=== PATIENT | female | born 1970 | race Caucasian/White ===

== ENCOUNTER 2019-05-01 14:48 | Emergency (ER) | payer SELFPAY ==
[2019-05-01 15:12] VITALS: BP 134/89; PULSE 90; RESP 16; TEMP 36.5; O2SAT 98
--- NOTE | 2019-05-01 15:19 | DI.RAD.S_ITS ---
PROCEDURE: XR CHEST 1V INDICATIONS: chest pain TECHNIQUE: One view of the chest was acquired. COMPARISON: None. FINDINGS: Surgical changes and devices: None. Lungs and pleura: Lungs are clear. No pleural effusions or pneumothorax. Mediastinum: Mediastinal contours appear normal. Heart size is normal. Bones and chest wall: No suspicious bony lesions. Overlying soft tissues appear unremarkable. IMPRESSION: No evidence acute pulmonary process. Dictated by: Franko Smith M.D. on 05/01/2019 at 16:25 Approved by: Franko Smith M.D. on 05/01/2019 at 16:25
[2019-05-01 15:58] LABS: Add Manual Diff / Slide Review NO; Basophils Absolute Auto 0 /uL (0-100); Basophils Percent Auto 0.6 % (0-2); Eosinophils Absolute Auto 200 /uL (0-450); Eosinophils Percent Auto 3.2 % (2-4); Hematocrit 39.7 % (36-46); Hemoglobin 13.2 g/dL (12.0-16.0); Lymphocytes Absolute Auto 2000 /uL (1100-4500); Lymphocytes Percent Auto 35.5 % (25-40); Mean Corpuscular HGB Conc 33.4 % (30-36); Mean Corpuscular Hemoglobin 27.7 PG (26-34); Mean Corpuscular Volume 82.9 fL (80-100); Monocytes Absolute Auto 500 /uL (0-900); Monocytes Percent Auto 8.5 % (3-14); Neutrophils Absolute Auto 3000 /uL (1500-7000); Neutrophils Percent Auto 52.2 % (50-75); Platelet Count 260 X10^3/uL (150-400); Red Blood Cell Count 4.79 X10^6/uL (4.0-5.2); Red Cell Distribution Width 14.4 % (11.6-14.8); White Blood Cell Count 5.8 X10^3/uL (4.5-11.0)
[2019-05-01 16:07] LABS: Prothrombin Time 10.9 SECONDS (10.1-12.7)
--- NOTE | 2019-05-01 16:09 | ED_ITS ---
HPI - Chest Pain General Chief Complaint: Chest Pain Stated Complaint: HEART FLUTTERS CRAMPS IN LEGS Time Seen by Provider: 05/01/19 15:55 Source: patient Mode of arrival: Ambulatory History of Present Illness HPI narrative: Patient is a 48-year-old female who presents with left-sided chest pain. She says it started for abruptly around 11:00 p.m. last evening. The initial onset was the worst and most intense however it has been constant in 1 particular area. it does not get better or worse with exertion. She is unable to lie flat last night she does sleep with multiple pillows behind her. She noticed going up stairs she gets extremely short of breath. She denies any swelling no recent travel. She denies any dizziness or lightheadedness. She says she was moving some things but was not very heavy she does not think that she pulled her injured anything. MD complaint: chest pain Onset (ago): hour(s) Duration: constant Onset: during rest Pain location: left chest Related Data Home Medications Medication Instructions Recorded Confirmed albuterol sulfate [Ventolin HFA] 2 puff INH PRN PRN #0 07/30/17 05/01/19 Probiotic 1 cap PO DAILY 05/01/19 05/01/19 acyclovir 1 dose PO PRN PRN 05/01/19 05/01/19 aspirin 81 mg PO DAILY 05/01/19 05/01/19 beclomethasone dipropionate [Qvar 1 inh INHALATION BID 05/01/19 05/01/19 RediHaler] cetirizine 10 mg PO DAILY 05/01/19 05/01/19 cholecalciferol (vitamin D3) 5,000 unit PO DAILY 05/01/19 05/01/19 [Vitamin D3] gabapentin 300 mg PO Q6H PRN 05/01/19 05/01/19 montelukast 10 mg PO DAILY 05/01/19 05/01/19 omeprazole magnesium [Prilosec OTC] 20 mg PO DAILY 05/01/19 05/01/19 Allergies Allergy/AdvReac Type Severity Reaction Status Date / Time adhesive [ADHESIVE] Allergy Unknown Verified 05/01/19 15:18 azithromycin [AZITHROMYCIN] Allergy Unknown Verified 05/01/19 15:18 cefdinir [From OMNICEF] Allergy Unknown Verified 05/01/19 15:18 latex [LATEX] Allergy Unknown Verified 05/01/19 15:18 Penicillins [PENICILLINS] Allergy Unknown Verified 05/01/19 15:18 prednisone [PREDNISONE] Allergy Unknown Verified 05/01/19 15:18 Review of Systems Review of Systems ROS Unobtainable: All systems reviewed & are unremarkable except as noted in HPI and below Constitutional Constitutional: Denies chills, Denies fever(s), Denies lethargy and Denies weakness Eyes Eyes: Denies change in vision, Denies eye discharge, Denies irritation and Denies loss of vision Cardiovascular Cardiovascular: Reports as per HPI, Reports chest pain and Reports dyspnea on exertion Respiratory Respiratory: Denies cough, Reports dyspnea on exertion, Denies stridor and Denies wheezing Gastrointestinal Gastrointestinal: Denies abdominal pain, Denies change in bowel habits, Denies diarrhea, Denies nausea and Denies vomiting Genitourinary Genitourinary: Denies hematuria, Denies flank pain, Denies urinary incontinence and Denies urinary urgency Musculoskeletal Musculoskeletal: Denies back pain, Denies muscle weakness, Denies numbness and Denies tingling Integumentary/Breasts Skin/Breast: Denies pruritus, Denies erythema, Denies rash and Denies wounds Neurologic Neurologic: Denies loss of vision, Denies numbness, Denies tingling and Denies weakness Allergic/Immunologic Allergic/Immunologic: Denies wheezing [facility] Medical History Asthma (Acute) GERD (gastroesophageal reflux disease) (Acute) Social History Smoking Status: Never smoker Social History Smoking Status: Never smoker Exam Initial Vital Signs Initial Vital Signs: Vital Signs Temperature 97.7 F 05/01/19 15:12 Pulse Rate 90 05/01/19 15:12 Respiratory Rate 16 05/01/19 15:12 Blood Pressure 134/89 05/01/19 15:12 Pulse Oximetry 98 05/01/19 15:12 GENERAL: Overweight alert pleasant female and in no acute distress. HEENT: Head atraumatic,EOMI, pupils reactive, face symmetric, moist mucous membranes CARDIOVASCULAR: Regular rate and rhythm without murmurs, rubs or gallops. Pain left-sided chest reproducible with palpation not worse with arm movement or deep breathing RESPIRATORY: Breath sounds equal bilaterally, no wheezes rales or rhonchi. ABDOMEN: Soft, nontender. Normoactive bowel sounds all 4 quadrants. No guarding or rebound. EXTREMITIES: Normal range of motion, no clubbing or edema. Neurovascularly intact NEUROLOGICAL: Alert and oriented x4.Normal gait and speech. Cranial nerves II through XII grossly intact. SKIN: Warm, dry, no laceration, no petechiae, no rashes or lesions. Scores HEART Score Heart Score history: Slightly Suspicious Heart Score EKG: Normal Heart Score Age: 45-64 years old Heart Score risk factors: No known risk factors Heart Score troponin: < or = to normal limit Heart Score Total: 1 PERC Score Age greater than or equal to 50 years: No Heart rate greater than or equal to 100 bpm: No Room Air O2 Sat less than 95%: No Unilateral leg swelling: No Recent trauma or surgery: No Hemoptysis: No Prior PE or DVT: No Hormone Use: No Total PERC Score: 0 Wells' Criteria for PE Clinical signs and symptoms of DVT: No PE is #1 Dx or equally likely: No Heart rate > 100: No Immobilization at least 3 days or surg in previous 4 weeks: No History of PE or DVT: No Hemoptysis: No Malignancy w/Treatment within 6 months or palliative: No Wells' PE Score total: 0 Course Orders Ordered: Discontinued Medications Albuterol (Ventolin) 2.5 mg INH NOW ONE Stop: 05/01/19 17:05 Last Admin: 05/01/19 17:22 Dose: 2.5 mg Documented by: LETY Vital Signs Vital signs: Vital Signs - 8 hr 05/01/19 15:12 05/01/19 16:18 05/01/19 16:40 Temperature 97.7 F Pulse Rate 90 90 89 Respiratory Rate 16 20 18 Blood Pressure 134/89 Blood Pressure [Left Arm] 127/89 131/96 H Pulse Oximetry 98 100 98 MDM - Chest Pain Lab Data Attestation: I reviewed the patient's lab results. Result diagrams: 05/01/19 15:45 05/01/19 15:45 Labs: Lab Results 05/01/19 05/01/19 05/01/19 Range/Units 15:45 15:45 15:45 WBC 5.8 (4.5-11.0) X10^3/uL RBC 4.79 (4.0-5.2) X10^6/uL Hgb 13.2 (12.0-16.0) g/dL Hct 39.7 (36-46) % MCV 82.9 (80-100) fL MCH 27.7 (26-34) PG MCHC 33.4 (30-36) % RDW 14.4 (11.6-14.8) % Plt Count 260 (150-400) X10^3/uL Neut % (Auto) 52.2 (50-75) % Lymph % (Auto) 35.5 (25-40) % [place] % (Auto) 8.5 (3-14) % Eos % (Auto) 3.2 (2-4) % Baso % (Auto) 0.6 (0-2) % Neut # (Auto) 3000 (2818-3659) /uL Lymph # (Auto) 2000 (0755-7061) /uL [place] # (Auto) 500 (0-900) /uL Eos # (Auto) 200 (0-450) /uL Baso # (Auto) 0 (0-100) /uL PT 10.9 (10.1-12.7) SECONDS INR 1.0 (0.9-1.3) APTT 33 (26.4-36.2) SECONDS D-Dimer (<230) ng/mL Sodium 141 (137-145) mmol/L Potassium 4.3 (3.4-5.1) mmol/L Chloride 102 (98-107) mmol/L Carbon Dioxide 28 (22-32) mmol/L BUN 13 (7-17) mg/dL Creatinine 0.60 (0.52-1.04) mg/dL Estimated GFR > 60.0 (>60) mL/min BUN/Creatinine Ratio 21.7 (6-22) Glucose 103 H (70-100) mg/dL Calcium 9.4 (8.4-10.2) mg/dL Total Bilirubin 0.6 (0.2-1.3) mg/dL AST 38 H (14-36) IU/L ALT 55 H (9-52) IU/L Alkaline Phosphatase 104 (38-126) U/L Total Creatine Kinase 111 (30-135) U/L CK-MB (CK-2) 1.52 (<2.37) ng/mL CK-MB (CK-2) Rel Index 1.4 L (1.5-5.0) % Troponin I < 0.012 (0.01-0.034) ng/mL B-Natriuretic Peptide (<100) Total Protein 7.5 (6.3-8.2) g/dL Albumin 4.4 (3.5-5.0) g/dL Globulin 3.1 (1.7-4.1) g/dL Albumin/Globulin Ratio 1.4 (1.0-2.8) Lipase 71 (23-300) U/L 05/01/19 05/01/19 Range/Units 15:45 15:45 WBC (4.5-11.0) X10^3/uL RBC (4.0-5.2) X10^6/uL Hgb (12.0-16.0) g/dL Hct (36-46) % MCV (80-100) fL MCH (26-34) PG MCHC (30-36) % RDW (11.6-14.8) % Plt Count (150-400) X10^3/uL Neut % (Auto) (50-75) % Lymph % (Auto) (25-40) % [place] % (Auto) (3-14) % Eos % (Auto) (2-4) % Baso % (Auto) (0-2) % Neut # (Auto) (5442-6320) /uL Lymph # (Auto) (1781-2141) /uL [place] # (Auto) (0-900) /uL Eos # (Auto) (0-450) /uL Baso # (Auto) (0-100) /uL PT (10.1-12.7) SECONDS INR (0.9-1.3) APTT (26.4-36.2) SECONDS D-Dimer < 200 (<230) ng/mL Sodium (137-145) mmol/L Potassium (3.4-5.1) mmol/L Chloride (98-107) mmol/L Carbon Dioxide (22-32) mmol/L BUN (7-17) mg/dL Creatinine (0.52-1.04) mg/dL Estimated GFR (>60) mL/min BUN/Creatinine Ratio (6-22) Glucose (70-100) mg/dL Calcium (8.4-10.2) mg/dL Total Bilirubin (0.2-1.3) mg/dL AST (14-36) IU/L ALT (9-52) IU/L Alkaline Phosphatase (38-126) U/L Total Creatine Kinase (30-135) U/L CK-MB (CK-2) (<2.37) ng/mL CK-MB (CK-2) Rel Index (1.5-5.0) % Troponin I (0.01-0.034) ng/mL B-Natriuretic Peptide < 100 (<100) Total Protein (6.3-8.2) g/dL Albumin (3.5-5.0) g/dL Globulin (1.7-4.1) g/dL Albumin/Globulin Ratio (1.0-2.8) Lipase (23-300) U/L Imaging Data Chest x-ray: Radiologist's impression: PROCEDURE: XR CHEST 1V INDICATIONS: chest pain TECHNIQUE: One view of the chest was acquired. COMPARISON: None. FINDINGS: Surgical changes and devices: None. Lungs and pleura: Lungs are clear. No pleural effusions or pneumothorax. Mediastinum: Mediastinal contours appear normal. Heart size is normal. Bones and chest wall: No suspicious bony lesions. Overlying soft tissues gilberto ear unremarkable. IMPRESSION: No evidence acute pulmonary process. Dictated by: Franko Smith M.D. on 05/01/2019 at 16:25 Approved by: Franko Smith M.D. on 05/01/2019 at 16:2 ECG Data Attestation: I personally reviewed and interpreted this ECG as follows: Interpretation: Normal sinus rhythm rate 80 to p.r. interval [address] elevations no T-wave inversions Q-wave noted in lead 3 and to nonpathologic MDM Narrative Medical decision making narrative: Albuterol did not seem to help her. Pain has been constant for over 12 hours nonradiating 1 particular spot. It does hurt to palpation it is not quite as intense. She does admit to moving something yesterday this may be more musculoskeletal. Her D-dimer is negative and PERC score is low, unlikely to be PE. Troponin is negative no sign of pericarditis on EKG. She cannot take NSAIDS, she has had ulcers. Her troponin is negative. At this time I recommend outpatient follow-up. I discussed all findings with the patient, Education has been performed regarding treatment plan, diagnosis, warning signs and symptoms and all concerns have been addressed. Verbally agree with and understood all of the above. Discharge Plan Departure Patient Disposition: Home Clinical Impression: Atypical chest pain Discharge Date/Time: 05/01/19 18:08 Instructions: Costochondrcorry, DI for Atypical Chest Pain Activity Restrictions/Additional Instructions: *You have been diagnosed with atypical chest pain *What to do: Possible costochondritis or musculoskeletal issue. Blood work and x-ray today are reassuring. You still may require further cardiac testing such as a stress test with her PCP *Continue to take medications as directed Tylenol 1000 mg every 6 hours if needed for pain *Follow up with your primary care provider in 2-3 days *Return to ER if you should have increasing chest pain shortness breath or any new, worsening or concerning symptoms Prescriptions: No Action albuterol sulfate [Ventolin HFA] 90 MCG/PUFF HFA aerosol inhaler 2 puff INH PRN PRN (Reason: Shortness Of Breath) Qty: 0 RF: 0 cetirizine 10 mg Tablet 10 mg PO DAILY RF: 0 aspirin 81 mg Tablet,Delayed Release (Dr/Ec) 81 mg PO DAILY RF: 0 montelukast 10 mg Tablet 10 mg PO DAILY RF: 0 cholecalciferol (vitamin D3) [Vitamin D3] 1,000 unit Capsule 5,000 unit PO DAILY RF: 0 Prilosec OTC 20 mg Tablet,Delayed Release (Dr/Ec) 20 mg PO DAILY RF: 0 Qvar RediHaler 80 mcg/actuation Hfa Aerosol Breath Activated 1 inh INHALATION BID RF: 0 Probiotic 1 cap PO DAILY RF: 0 acyclovir 1 dose PO PRN PRN (Reason: outbreaks) RF: 0 gabapentin 300 mg capsule 300 mg PO Q6H PRN (Reason: flare ups) RF: 0 Referrals: [facility] [Outside]
[2019-05-01 16:10] LABS: PTT Partial Thromboplastin Tim 33 SECONDS (26.4-36.2)
[2019-05-01 16:13] LABS: Alanine Aminotransferase 55 IU/L (9-52); Albumin 4.4 g/dL (3.5-5.0); Albumin Globulin Ratio 1.4 (1.0-2.8); Alkaline Phosphatase 104 U/L (38-126); Aspartate Aminotransferase 38 IU/L (14-36); BUN Creatinine Ratio 21.7 (6-22); Bilirubin Total 0.6 mg/dL (0.2-1.3); Blood Urea Nitrogen 13 mg/dL (7-17); Calcium 9.4 mg/dL (8.4-10.2); Carbon Dioxide 28 mmol/L (22-32); Chloride 102 mmol/L (98-107); Creatine Kinase 111 U/L (30-135); Estimated Glomerular Filt Rate > 60.0 mL/min (>60); Globulin 3.1 g/dL (1.7-4.1); Glucose 103 mg/dL (70-100); HEMOLYSIS < 15 (0-50); Lipase 71 U/L (23-300); Potassium 4.3 mmol/L (3.4-5.1); Sodium 141 mmol/L (137-145); Total Protein 7.5 g/dL (6.3-8.2)
[2019-05-01 16:18] VITALS: BP 127/89; PULSE 90; RESP 20; O2SAT 100
--- NOTE | 2019-05-01 16:19 | PC.NURSE ---
pt reports constant pressure with moments of increased pain, pt states worse when lying down flat.
[2019-05-01 16:24] LABS: Troponin I < 0.012 ng/mL (0.01-0.034)
[2019-05-01 16:28] LABS: CKMB % Relative Index 1.4 % (1.5-5.0); Creatine Kinase MB 1.52 ng/mL (<2.37)
[2019-05-01 16:34] LABS: D Dimer < 200 ng/mL (<230)
[2019-05-01 16:40] VITALS: BP 131/96; PULSE 89; RESP 18; O2SAT 98
[2019-05-01 17:00] VITALS: BP 120/91; PULSE 92; RESP 16; O2SAT 100
[2019-05-01 17:05] LABS: B Type Natriuretic Peptide < 100 (<100)
[2019-05-01 17:22] VITALS: PULSE 85; RESP 12; O2SAT 99
[2019-05-01] MEDS: ALBUTEROL 2.5 MG/3 ML NEB (ADULT) INH (17:22)
[2019-05-01 18:07] VITALS: BP 124/87; PULSE 89
--- NOTE | 2019-05-02 13:31 | PC.NURSE ---
pt called inquiring if antibiotic treatment needed, pt reassured, no antibiotic was order according to the providers instructions.
== END 2019-05-01 18:08 | disposition home or self-care (01) ==
PROVIDERS: Emergency Provider Emergency Medicine
DX: R07.89 Other chest pain (principal)
CPT/HCPCS: 36415; 71045; 80053; 82550; 82553; 83690; 83880; 84484; 85025; 85379; 85610; 85730; 93005; 94640; 99283; 99285; J7613